=== PATIENT | male | born 1970 | race African-American/Black ===

== ENCOUNTER 2021-04-24 02:51 | Inpatient (IN) | payer OTHER, MEDICAID ==
[~2021-04-24] VITALS: Ht 182.9 cm; Wt 95.7 kg
[~2021-04-24 02:51] MED LIST: HCTZ; LISINOPRIL; [UNRECOGNIZED DRUG - OTHER]
[2021-04-24] MEDS ORDERED: MORPHINE SULFATE 4 MG/ML CPJ (NOT FOR IM USE) IV STA (03:22)
[2021-04-24] MEDS ORDERED: FAMOTIDINE 20MG/2ML VIAL IV STA (03:22)
[2021-04-24] MEDS ORDERED: METOCLOPRAMIDE HCL 10MG/2ML VIAL IV STA (03:22)
[2021-04-24] MEDS ORDERED: SODIUM CHLORIDE 0.9% 1,000 ML IV ONE ×2 (03:30)
[2021-04-24] MEDS ORDERED: METRONIDAZOLE 500 MG PREMIX 100 ML IV ONE (03:30)
[2021-04-24] MEDS ORDERED: PIPERACILLIN/TAZ 3.375G PREMIX 50 ML IV ONE (03:30)
[2021-04-24 04:07] LABS: BASOPHILS % 0.8 % (0.0-2.0); HEMATOCRIT. 30.9 % (42.0-52.0); HEMOGLOBIN. 10.2 g/dL (14.0-18.0); LYMPHOCYTES % 11.2 % (20.0-50.0); MEAN CORPUSCULAR HEMOGLOBIN 29.9 pg (28.0-32.0); MEAN CORPUSCULAR VOLUME 90.4 fL (80.0-94.0); MEAN PLATELET VOLUME 9.1 fl (7.4-10.4); MONOCYTES % 10.4 % (2.0-8.0); NEUTROPHILS % 75.6 % (40.0-76.0); PLATELET 320 x1000/uL (130-400); RED BLOOD CELL COUNT 3.42 mill/uL (4.7-6.1); RED CELL DISTRIBUTION WIDTH 17.3 % (11.6-14.6)
[2021-04-24] MEDS ORDERED: MORPHINE SULFATE 2 MG/ML CPJ (NOT FOR IM USE) IV NR (04:15)
[2021-04-24 04:20] LABS: CHLORIDE 99 mEq/L (98-107)
[2021-04-24] MEDS ORDERED: DIATR MEGLU/DIATRIZOATE SOLN 30ML ONE (04:41)
[2021-04-24] MEDS ORDERED: IOHEXOL-300 100 ML BOTTLE ONE (05:57)
[2021-04-24] MEDS ORDERED: MORPHINE SULFATE 4 MG/ML CPJ (NOT FOR IM USE) IV ONE (06:30)
[2021-04-24] MEDS ORDERED: MORPHINE SULFATE 2 MG/ML CPJ (NOT FOR IM USE) IV SCH (08:00)
[2021-04-24] MEDS ORDERED: PIPERACILLIN/TAZ 3.375G PREMIX 50 ML IV NR (09:30)
[2021-04-24] MEDS ORDERED: NOREPINEPHRINE 8MG/250ML PMX 250 ML IV PRN (09:30)
[2021-04-24] MEDS ORDERED: VANCOMYCIN 1 G PREMIX 200 ML IV SCH (10:00)
[2021-04-24 10:16] LABS: BASOPHILS % 0.6 % (0.0-2.0); EOSINOPHILS % 2.1 % (0.0-5.0); HEMATOCRIT. 27.8 % (42.0-52.0); HEMOGLOBIN. 9.3 g/dL (14.0-18.0); LYMPHOCYTES % 11.6 % (20.0-50.0); MEAN CORPUSCULAR HEMOGLOBIN 30.7 pg (28.0-32.0); MEAN CORPUSCULAR VOLUME 91.5 fL (80.0-94.0); MEAN PLATELET VOLUME 8.6 fl (7.4-10.4); MONOCYTES % 8.8 % (2.0-8.0); NEUTROPHILS % 76.9 % (40.0-76.0); PLATELET 289 x1000/uL (130-400); RED BLOOD CELL COUNT 3.04 mill/uL (4.7-6.1); RED CELL DISTRIBUTION WIDTH 17.4 % (11.6-14.6)
[2021-04-24 10:26] LABS: CHLORIDE 100 mEq/L (98-107)
[2021-04-24] MEDS ORDERED: NOREPINEPHRINE 8 MG in DEXTROSE 5% WATER 250 ML IV PRN ×2 (11:30→14:45)
[2021-04-24] MEDS ORDERED: LORAZEPAM 2MG/ML CPJ IV PRN (11:45)
[2021-04-24] MEDS ORDERED: TPN PER PHARMACY XX SCH (11:45)
[2021-04-24] MEDS ORDERED: IPRATROPIUM/ALBUTEROL 0.5-3(2.5)MG/3ML NEB NEB PRN (11:45)
[2021-04-24] MEDS ORDERED: NA PHOS,M-B/NA PHOS,DI-BA ENEMA 118ML PR PRN (11:45)
[2021-04-24] MEDS: FAMOTIDINE 20MG/2ML VIAL IV SCH (12:19)
[2021-04-24] MEDS: MORPHINE SULFATE 2 MG/ML CPJ (NOT FOR IM USE) IV PRN ×3 (12:20→23:50)
[2021-04-24 12:27] LABS: CLARITY URINE CLEAR (CLEAR); COLOR URINE YELLOW (YELLOW); KETONES URINE NEGATIVE (NEGATIVE); LEUKOCYTE ESTERASE URINE NEGATIVE (NEGATIVE); NITRITE URINE NEGATIVE (NEGATIVE); OCCULT BLOOD URINE 1+ (NEGATIVE); PH URINE 7.5 (4.5-8.0); PROTEIN URINE 2+ (NEGATIVE); SPECIFIC GRAVITY URINE 1.026 (1.005-1.030); UROBILINOGEN URINE 0.2 E.U./dL (0.2-1.0)
[2021-04-24] MEDS ORDERED: VANCOMYCIN 2,000 MG in DEXT 5% WATER 500 ML IV NR (13:00)
[2021-04-24] MEDS ORDERED: VANCOMYCIN 1 G PREMIX 200 ML IV NR (13:00)
[2021-04-24] MEDS ORDERED: LEVETIRACETAM 500 MG in SODIUM CHLORIDE 0.9% 100 ML IV SCH (13:15)
[2021-04-24] MEDS ORDERED: NALOXONE HCL 0.4MG/ML VIAL IV PRN (13:45)
[2021-04-24] MEDS ORDERED: LEVETIRACETAM 500MG PREMIX 100 ML IV SCH (14:00)
[2021-04-24 15:21] LABS: HEMATOCRIT 27.9 % (42.0-52.0); HEMOGLOBIN 9.5 g/dL (14.0-18.0)
[2021-04-24 15:30] LABS: INR 1.1
[2021-04-24 15:36] LABS: CREATINE KINASE 25 IU/L (39-308)
[2021-04-24 15:37] LABS: CREATINE KINASE MB FRACTION 1.2 ng/mL (0.5-3.6)
[2021-04-24] MEDS: PIPERACILLIN/TAZOBACTAM 3.375G in DEXT 5% WATER 50ML IV SCH (15:44)
[2021-04-24] MEDS: LEVETIRACETAM 500MG PREMIX 100 ML IV SCH ×2 (15:44→21:00)
[2021-04-24 17:00] VITALS: BP 132/68
[2021-04-24 18:00] VITALS: BP 117/73
[2021-04-24 20:00] VITALS: BP 104/67
[2021-04-24 22:00] VITALS: BP 125/72
[2021-04-24] MEDS ORDERED: PIPERACILLIN/TAZOBACTAM 3.375G in DEXT 5% WATER 50ML IV SCH (22:00)
[2021-04-24] MEDS: BLOOD SUGAR DIAGNOSTIC STRIP TEST SCH (23:44)
[2021-04-25] VITALS (13 sets, daily range): BP systolic 96–141; BP diastolic 50–88
[2021-04-25 00:35] LABS: CREATINE KINASE 30 IU/L (39-308)
[2021-04-25 00:36] LABS: CREATINE KINASE MB FRACTION 1.8 ng/mL (0.5-3.6)
[2021-04-25] MEDS: PIPERACILLIN/TAZOBACTAM 3.375G in DEXT 5% WATER 50ML IV SCH ×4 (01:10→22:42)
[2021-04-25] MEDS: TOTAL PARENTERAL NUTRITION IV SCH ×2 (01:13→21:21)
[2021-04-25] MEDS: MORPHINE SULFATE 2 MG/ML CPJ (NOT FOR IM USE) IV PRN ×4 (04:31→17:52)
[2021-04-25] MEDS: BLOOD SUGAR DIAGNOSTIC STRIP TEST SCH ×3 (06:00→18:03)
[2021-04-25] MEDS ORDERED: VANCOMYCIN 1500MG in DEXTROSE 5% WATER 250ML IV SCH (08:00)
[2021-04-25] MEDS ORDERED: LIDOCAINE HCL 1% 20ML VIAL (Pyxis) INJ ONE (08:06)
[2021-04-25 09:32] LABS: BASOPHILS % 0.8 % (0.0-2.0); EOSINOPHILS % 4.9 % (0.0-5.0); HEMATOCRIT. 29.7 % (42.0-52.0); HEMOGLOBIN. 9.7 g/dL (14.0-18.0); LYMPHOCYTES % 13.4 % (20.0-50.0); MEAN CORPUSCULAR HEMOGLOBIN 30.1 pg (28.0-32.0); MEAN CORPUSCULAR VOLUME 91.9 fL (80.0-94.0); MEAN PLATELET VOLUME 9.4 fl (7.4-10.4); MONOCYTES % 10.3 % (2.0-8.0); NEUTROPHILS % 70.6 % (40.0-76.0); PLATELET 283 x1000/uL (130-400); RED BLOOD CELL COUNT 3.24 mill/uL (4.7-6.1); RED CELL DISTRIBUTION WIDTH 17.5 % (11.6-14.6)
[2021-04-25 09:41] LABS: CHLORIDE 102 mEq/L (98-107)
[2021-04-25 09:49] LABS: LDL CHOLESTEROL 91 mg/dL (5-100)
[2021-04-25 09:50] LABS: HDL CHOLESTEROL 32 mg/dL (40-59); TOTAL IRON BINDING CAPACITY 137 ug/dL (250-450)
[2021-04-25 09:54] LABS: T4 FREE 1.09 ng/dL (0.76-1.46)
[2021-04-25] MEDS: FAMOTIDINE 20MG/2ML VIAL IV SCH (10:16)
[2021-04-25] MEDS: LEVETIRACETAM 500MG PREMIX 100 ML IV SCH ×2 (10:16→21:19)
[2021-04-25] MEDS: VANCOMYCIN 1500MG in DEXTROSE 5% WATER 250ML IV SCH (11:56)
[2021-04-26] VITALS (15 sets, daily range): BP systolic 92–138; BP diastolic 56–92
[2021-04-26] MEDS: DIPHENHYDRAMINE 50MG/ML VIAL IV PRN (00:50)
[2021-04-26] MEDS: MORPHINE SULFATE 2 MG/ML CPJ (NOT FOR IM USE) IV PRN ×3 (00:51→18:27)
[2021-04-26] MEDS: BLOOD SUGAR DIAGNOSTIC STRIP TEST SCH ×4 (06:00→17:25)
[2021-04-26] MEDS: PIPERACILLIN/TAZOBACTAM 3.375G in DEXT 5% WATER 50ML IV SCH ×3 (06:34→23:02)
[2021-04-26 08:05] LABS: BASOPHILS % 0.8 % (0.0-2.0); EOSINOPHILS % 6.3 % (0.0-5.0); HEMATOCRIT. 30.2 % (42.0-52.0); HEMOGLOBIN. 10.2 g/dL (14.0-18.0); LYMPHOCYTES % 20.2 % (20.0-50.0); MEAN CORPUSCULAR HEMOGLOBIN 30.8 pg (28.0-32.0); MEAN CORPUSCULAR VOLUME 91.1 fL (80.0-94.0); MONOCYTES % 11.9 % (2.0-8.0); NEUTROPHILS % 60.8 % (40.0-76.0); PLATELET 251 x1000/uL (130-400); RED BLOOD CELL COUNT 3.31 mill/uL (4.7-6.1); RED CELL DISTRIBUTION WIDTH 17.2 % (11.6-14.6)
[2021-04-26] MEDS: LEVETIRACETAM 500MG PREMIX 100 ML IV SCH ×2 (08:57→20:34)
[2021-04-26] MEDS: FAMOTIDINE 20MG/2ML VIAL IV SCH (08:57)
[2021-04-26] MEDS ORDERED: BISACODYL 10MG SUPP PR SCH (09:45)
[2021-04-26] MEDS: VANCOMYCIN 1500MG in DEXTROSE 5% WATER 250ML IV SCH (10:41)
[2021-04-26 10:55] LABS: BG FRACTION INSPIRED OXYGEN 21; BG SAMPLE SITE LEFT RADIAL; BG VENT MODE ROOM AIR
[2021-04-26 11:05] LABS: BG PCO2 45.8 mmHg (35.0-45.0); BG PH 7.476 (7.350-7.450)
[2021-04-26 11:06] LABS: BG PO2 77.9 mmHg (75.0-100.0)
[2021-04-26 11:07] LABS: BG BASE EXCESS 8.5 mmol/L (-2.0-2.0)
[2021-04-26 11:08] LABS: BG OXYGEN SATURATION 95.4 % (92.0-98.5); BG TOTAL HEMOGLOBIN 10.2 g/dL (12.0-18.0)
[2021-04-26 11:09] LABS: BG CARBOXYHEMOGLOBIN 0.1 % (0.5-1.5); BG OXYHEMOGLOBIN 95.1 % (94.0-97.0)
[2021-04-26 11:10] LABS: BG DEOXYHEMOGLOBIN 4.6 % (0.0-5.0); BG METHEMOGLOBIN 0.2 % (0.0-1.5)
[2021-04-26] MEDS ORDERED: FENTANYL 25MCG/HR PATCH TOP SCH (12:00)
[2021-04-26] MEDS: TOTAL PARENTERAL NUTRITION IV SCH (20:40)
[2021-04-27] VITALS (14 sets, daily range): BP systolic 107–145; BP diastolic 36–91
[2021-04-27] MEDS: MORPHINE SULFATE 2 MG/ML CPJ (NOT FOR IM USE) IV PRN ×5 (00:16→21:54)
[2021-04-27] MEDS: PIPERACILLIN/TAZOBACTAM 3.375G in DEXT 5% WATER 50ML IV SCH ×3 (06:19→22:14)
[2021-04-27] MEDS: LEVETIRACETAM 500MG PREMIX 100 ML IV SCH ×2 (09:01→21:42)
[2021-04-27] MEDS: FAMOTIDINE 20MG/2ML VIAL IV SCH (09:01)
[2021-04-27] MEDS: BLOOD SUGAR DIAGNOSTIC STRIP TEST SCH (09:02)
[2021-04-27] MEDS ORDERED: BISACODYL 10MG SUPP PR NR (12:15)
[2021-04-27] MEDS: VANCOMYCIN 1500MG in DEXTROSE 5% WATER 250ML IV SCH (12:21)
[2021-04-27] MEDS: DIPHENHYDRAMINE 50MG/ML VIAL IV PRN (12:28)
[2021-04-27] MEDS: TOTAL PARENTERAL NUTRITION IV SCH (22:15)
[2021-04-28] VITALS: BP 119/66
[2021-04-28 04:00] VITALS: BP 132/81
[2021-04-28] MEDS: PIPERACILLIN/TAZOBACTAM 3.375G in DEXT 5% WATER 50ML IV SCH ×3 (05:21→21:51)
[2021-04-28] MEDS: MORPHINE SULFATE 2 MG/ML CPJ (NOT FOR IM USE) IV PRN ×4 (05:28→18:40)
[2021-04-28 08:00] VITALS: BP 143/96
[2021-04-28] MEDS: FAMOTIDINE 20MG/2ML VIAL IV SCH (08:34)
[2021-04-28] MEDS: LEVETIRACETAM 500MG PREMIX 100 ML IV SCH ×2 (08:34→20:26)
[2021-04-28 09:14] LABS: BASOPHILS % 0.9 % (0.0-2.0); EOSINOPHILS % 5.6 % (0.0-5.0); HEMATOCRIT. 29.3 % (42.0-52.0); LYMPHOCYTES % 13.4 % (20.0-50.0); MEAN CORPUSCULAR VOLUME 90.5 fL (80.0-94.0); MEAN PLATELET VOLUME 8.7 fl (7.4-10.4); MONOCYTES % 10.7 % (2.0-8.0); NEUTROPHILS % 69.4 % (40.0-76.0); PLATELET 319 x1000/uL (130-400); RED BLOOD CELL COUNT 3.24 mill/uL (4.7-6.1)
[2021-04-28] MEDS: BLOOD SUGAR DIAGNOSTIC STRIP TEST SCH (09:49)
[2021-04-28] MEDS: VANCOMYCIN 1500MG in DEXTROSE 5% WATER 250ML IV SCH (11:48)
[2021-04-28 12:00] VITALS: BP 178/91
[2021-04-28 16:00] VITALS: BP 126/84
[2021-04-28] MEDS: TOTAL PARENTERAL NUTRITION IV SCH (21:54)
[2021-04-29] VITALS: BP 140/65
[2021-04-29] MEDS: MORPHINE SULFATE 2 MG/ML CPJ (NOT FOR IM USE) IV PRN ×3 (00:50→09:51)
[2021-04-29 04:00] VITALS: BP 135/63
[2021-04-29] MEDS: PIPERACILLIN/TAZOBACTAM 3.375G in DEXT 5% WATER 50ML IV SCH (05:00)
[2021-04-29 08:00] VITALS: BP 165/98
[2021-04-29] MEDS: BLOOD SUGAR DIAGNOSTIC STRIP TEST SCH (09:00)
[2021-04-29] MEDS: LEVETIRACETAM 500MG PREMIX 100 ML IV SCH ×2 (10:00→20:50)
[2021-04-29] MEDS: FAMOTIDINE 20MG/2ML VIAL IV SCH (10:00)
[2021-04-29 12:00] VITALS: BP 147/97
[2021-04-29] MEDS: FENTANYL 50MCG/HR PATCH TOP SCH (13:10)
[2021-04-29 16:00] VITALS: BP 156/92
[2021-04-29] MEDS ORDERED: MORPHINE SULFATE 2 MG/ML CPJ (NOT FOR IM USE) IV NR (17:27)
[2021-04-29] MEDS ORDERED: VANCOMYCIN 1 G PREMIX 200 ML IV NR (18:00)
[2021-04-29 20:00] VITALS: BP 150/94
[2021-04-29] MEDS: TOTAL PARENTERAL NUTRITION IV SCH (22:07)
[2021-04-30] VITALS: BP 137/84
[2021-04-30] MEDS: MORPHINE SULFATE 2 MG/ML CPJ (NOT FOR IM USE) IV PRN ×7 (00:04→20:52)
[2021-04-30 06:44] LABS: BASOPHILS % 0.6 % (0.0-2.0); EOSINOPHILS % 1.7 % (0.0-5.0); HEMATOCRIT. 31.5 % (42.0-52.0); HEMOGLOBIN. 10.8 g/dL (14.0-18.0); LYMPHOCYTES % 10.4 % (20.0-50.0); MEAN CORPUSCULAR VOLUME 90.9 fL (80.0-94.0); MEAN PLATELET VOLUME 8.6 fl (7.4-10.4); MONOCYTES % 10.3 % (2.0-8.0); PLATELET 339 x1000/uL (130-400); RED BLOOD CELL COUNT 3.47 mill/uL (4.7-6.1); RED CELL DISTRIBUTION WIDTH 16.6 % (11.6-14.6)
[2021-04-30 08:00] VITALS: BP 145/99
[2021-04-30] MEDS: LEVETIRACETAM 500MG PREMIX 100 ML IV SCH ×2 (08:41→20:18)
[2021-04-30] MEDS: BLOOD SUGAR DIAGNOSTIC STRIP TEST SCH (08:41)
[2021-04-30] MEDS: FAMOTIDINE 20MG/2ML VIAL IV SCH (08:41)
[2021-04-30] MEDS: ONDANSETRON HCL 4MG/2ML INJ IV PRN (09:48)
[2021-04-30] MEDS ORDERED: METOPROLOL TARTRATE 5MG/5ML VIAL IV ONE (11:15)
[2021-04-30 12:00] VITALS: BP 140/97
[2021-04-30] MEDS: LEVOFLOXACIN 500MG PREMIX 100 ML IV SCH (12:37)
[2021-04-30] MEDS ORDERED: METOPROLOL TARTRATE IV SCH (13:00)
[2021-04-30] MEDS ORDERED: SODIUM CHLORIDE 0.9% IV SCH (13:00)
[2021-04-30 16:00] VITALS: BP 138/95
[2021-04-30] MEDS: METRONIDAZOLE 500 MG PREMIX 100 ML IV SCH ×2 (16:02→21:40)
[2021-04-30 20:00] VITALS: BP 119/81
[2021-04-30] MEDS: TOTAL PARENTERAL NUTRITION IV SCH (21:50)
[2021-05-01] VITALS: BP 156/96
[2021-05-01] MEDS: MORPHINE SULFATE 2 MG/ML CPJ (NOT FOR IM USE) IV PRN ×6 (00:04→21:18)
[2021-05-01 04:00] VITALS: BP 149/96
[2021-05-01] MEDS: METRONIDAZOLE 500 MG PREMIX 100 ML IV SCH ×3 (06:09→21:47)
[2021-05-01 08:00] VITALS: BP 124/82
[2021-05-01] MEDS: BLOOD SUGAR DIAGNOSTIC STRIP TEST SCH (09:00)
[2021-05-01] MEDS: FAMOTIDINE 20MG/2ML VIAL IV SCH ×2 (10:28→21:20)
[2021-05-01] MEDS: LEVETIRACETAM 500MG PREMIX 100 ML IV SCH ×2 (10:28→21:13)
[2021-05-01] MEDS: LEVOFLOXACIN 500MG PREMIX 100 ML IV SCH (11:22)
[2021-05-01 12:00] VITALS: BP 130/73
[2021-05-01] MEDS ORDERED: METOPROLOL TARTRATE 5MG/5ML VIAL IV ONE (13:15)
[2021-05-01] MEDS ORDERED: SODIUM CHLORIDE 0.9% IV SCH (13:30)
[2021-05-01] MEDS ORDERED: METOPROLOL TARTRATE IV SCH (13:30)
[2021-05-01 16:00] VITALS: BP 102/67
[2021-05-01] MEDS ORDERED: NALOXONE HCL 0.4MG/ML VIAL IV PRN (18:00)
[2021-05-01 20:00] VITALS: BP 118/68
[2021-05-01] MEDS: TOTAL PARENTERAL NUTRITION IV SCH (21:14)
[2021-05-02] VITALS: BP 98/59
[2021-05-02 04:00] VITALS: BP 109/68
[2021-05-02] MEDS: DIPHENHYDRAMINE 50MG/ML VIAL IV PRN (04:07)
[2021-05-02] MEDS: METRONIDAZOLE 500 MG PREMIX 100 ML IV SCH ×3 (06:19→21:30)
[2021-05-02] MEDS: MORPHINE SULFATE 2 MG/ML CPJ (NOT FOR IM USE) IV PRN ×3 (06:20→23:21)
[2021-05-02] MEDS: BLOOD SUGAR DIAGNOSTIC STRIP TEST SCH (09:00)
[2021-05-02] MEDS: FAMOTIDINE 20MG/2ML VIAL IV SCH ×2 (10:10→21:29)
[2021-05-02] MEDS: LEVETIRACETAM 500MG PREMIX 100 ML IV SCH ×2 (10:10→21:30)
[2021-05-02 12:00] VITALS: BP 125/65
[2021-05-02] MEDS: LEVOFLOXACIN 500MG PREMIX 100 ML IV SCH (12:29)
[2021-05-02 12:31] LABS: BASOPHILS % 0.9 % (0.0-2.0); EOSINOPHILS % 7.4 % (0.0-5.0); HEMATOCRIT. 24.4 % (42.0-52.0); HEMOGLOBIN. 8.3 g/dL (14.0-18.0); LYMPHOCYTES % 16.5 % (20.0-50.0); MEAN CORPUSCULAR HEMOGLOBIN 30.9 pg (28.0-32.0); MEAN CORPUSCULAR VOLUME 90.4 fL (80.0-94.0); MEAN PLATELET VOLUME 8.1 fl (7.4-10.4); MONOCYTES % 14.3 % (2.0-8.0); NEUTROPHILS % 60.9 % (40.0-76.0); PLATELET 316 x1000/uL (130-400); RED BLOOD CELL COUNT 2.69 mill/uL (4.7-6.1); RED CELL DISTRIBUTION WIDTH 16.4 % (11.6-14.6)
[2021-05-02] MEDS: FENTANYL 50MCG/HR PATCH TOP SCH (14:02)
[2021-05-02 16:00] VITALS: BP 105/60
[2021-05-02 20:00] VITALS: BP 104/66
[2021-05-02] MEDS: FAT EMULSIONS 500 ML IV SCH (21:31)
[2021-05-02] MEDS: TOTAL PARENTERAL NUTRITION IV SCH (21:32)
[2021-05-03] MEDS: MORPHINE SULFATE 2 MG/ML CPJ (NOT FOR IM USE) IV PRN ×4 (04:56→16:29)
[2021-05-03] MEDS: METRONIDAZOLE 500 MG PREMIX 100 ML IV SCH ×3 (05:10→22:29)
[2021-05-03 08:00] VITALS: BP 124/78
[2021-05-03] MEDS: FAMOTIDINE 20MG/2ML VIAL IV SCH ×2 (09:19→22:27)
[2021-05-03] MEDS: LEVETIRACETAM 500MG PREMIX 100 ML IV SCH ×2 (09:19→22:27)
[2021-05-03] MEDS: BLOOD SUGAR DIAGNOSTIC STRIP TEST SCH (09:29)
[2021-05-03 12:00] VITALS: BP 123/74
[2021-05-03] MEDS: LEVOFLOXACIN 500MG PREMIX 100 ML IV SCH (12:11)
[2021-05-03 20:00] VITALS: BP 138/84
[2021-05-03] MEDS: TOTAL PARENTERAL NUTRITION IV SCH (22:41)
[2021-05-04] VITALS: BP 128/88
[2021-05-04 01:09] LABS: BASOPHILS % 0.5 % (0.0-2.0); EOSINOPHILS % 6.6 % (0.0-5.0); HEMATOCRIT. 26.1 % (42.0-52.0); HEMOGLOBIN. 8.7 g/dL (14.0-18.0); LYMPHOCYTES % 15.2 % (20.0-50.0); MEAN CORPUSCULAR HEMOGLOBIN 30.6 pg (28.0-32.0); MEAN CORPUSCULAR VOLUME 92.3 fL (80.0-94.0); MEAN PLATELET VOLUME 8.7 fl (7.4-10.4); MONOCYTES % 12.2 % (2.0-8.0); NEUTROPHILS % 65.5 % (40.0-76.0); PLATELET 347 x1000/uL (130-400); RED BLOOD CELL COUNT 2.83 mill/uL (4.7-6.1); RED CELL DISTRIBUTION WIDTH 16.5 % (11.6-14.6)
[2021-05-04] MEDS: MORPHINE SULFATE 2 MG/ML CPJ (NOT FOR IM USE) IV PRN ×4 (02:20→20:37)
[2021-05-04] MEDS: METRONIDAZOLE 500 MG PREMIX 100 ML IV SCH ×3 (06:11→22:15)
[2021-05-04 07:20] LABS: BASOPHILS % 0.6 % (0.0-2.0); EOSINOPHILS % 6.7 % (0.0-5.0); HEMATOCRIT. 25.3 % (42.0-52.0); HEMOGLOBIN. 8.6 g/dL (14.0-18.0); LYMPHOCYTES % 15.5 % (20.0-50.0); MEAN CORPUSCULAR HEMOGLOBIN 30.9 pg (28.0-32.0); MEAN CORPUSCULAR VOLUME 91.3 fL (80.0-94.0); MEAN PLATELET VOLUME 8.4 fl (7.4-10.4); MONOCYTES % 10.8 % (2.0-8.0); NEUTROPHILS % 66.4 % (40.0-76.0); PLATELET 335 x1000/uL (130-400); RED BLOOD CELL COUNT 2.77 mill/uL (4.7-6.1); RED CELL DISTRIBUTION WIDTH 16.4 % (11.6-14.6)
[2021-05-04 08:00] VITALS: BP 142/91
[2021-05-04] MEDS: BLOOD SUGAR DIAGNOSTIC STRIP TEST SCH (09:00)
[2021-05-04] MEDS: FAMOTIDINE 20MG/2ML VIAL IV SCH ×2 (10:22→22:16)
[2021-05-04] MEDS: LEVETIRACETAM 500MG PREMIX 100 ML IV SCH ×2 (10:22→20:37)
[2021-05-04] MEDS: LEVOFLOXACIN 500MG PREMIX 100 ML IV SCH (11:57)
[2021-05-04 12:00] VITALS: BP 136/83
[2021-05-04 16:00] VITALS: BP 113/76
[2021-05-04 20:00] VITALS: BP 130/91
[2021-05-04] MEDS: TOTAL PARENTERAL NUTRITION IV SCH (22:15)
[2021-05-05] MEDS: MORPHINE SULFATE 2 MG/ML CPJ (NOT FOR IM USE) IV PRN ×4 (03:05→18:25)
[2021-05-05 04:00] VITALS: BP 129/65
[2021-05-05] MEDS: METRONIDAZOLE 500 MG PREMIX 100 ML IV SCH ×3 (05:36→22:55)
[2021-05-05] MEDS: BLOOD SUGAR DIAGNOSTIC STRIP TEST SCH (09:00)
[2021-05-05] MEDS: FAMOTIDINE 20MG/2ML VIAL IV SCH ×2 (09:49→21:15)
[2021-05-05] MEDS: LEVETIRACETAM 500MG PREMIX 100 ML IV SCH ×2 (09:49→21:15)
[2021-05-05] MEDS ORDERED: FENTANYL 50MCG/HR PATCH TOP SCH (11:00)
[2021-05-05] MEDS: LEVOFLOXACIN 500MG PREMIX 100 ML IV SCH (11:43)
[2021-05-05 12:00] VITALS: BP 128/82
[2021-05-05 16:00] VITALS: BP 126/81
[2021-05-05 20:00] VITALS: BP 115/79
[2021-05-05] MEDS: TOTAL PARENTERAL NUTRITION IV SCH (21:15)
[2021-05-06] MEDS: MORPHINE SULFATE 2 MG/ML CPJ (NOT FOR IM USE) IV PRN ×4 (01:40→20:17)
[2021-05-06 04:00] VITALS: BP 137/88
[2021-05-06 08:00] VITALS: BP 112/78
[2021-05-06] MEDS: BLOOD SUGAR DIAGNOSTIC STRIP TEST SCH (09:00)
[2021-05-06] MEDS: FAMOTIDINE 20MG/2ML VIAL IV SCH ×2 (09:22→20:22)
[2021-05-06] MEDS: LEVETIRACETAM 500MG PREMIX 100 ML IV SCH ×2 (09:23→20:19)
[2021-05-06 10:28] LABS: CHLORIDE 109 mEq/L (98-107)
[2021-05-06] MEDS: ONDANSETRON HCL 4MG/2ML INJ IV PRN (11:15)
[2021-05-06 12:00] VITALS: BP 103/64
[2021-05-06 20:00] VITALS: BP 100/69
[2021-05-06] MEDS ORDERED: TOTAL PARENTERAL NUTRITION IV SCH (21:00)
[2021-05-06] MEDS: FAT EMULSIONS 500 ML IV SCH (22:48)
[2021-05-07] VITALS: BP_SYST 105; BP_SYST 168; BP_DIAS 65; BP_DIAS 90
[2021-05-07] MEDS: MORPHINE SULFATE 2 MG/ML CPJ (NOT FOR IM USE) IV PRN ×4 (02:21→19:45)
[2021-05-07 08:00] VITALS: BP 124/81
[2021-05-07] MEDS: FAMOTIDINE 20MG/2ML VIAL IV SCH (08:30)
[2021-05-07] MEDS: LEVETIRACETAM 500MG PREMIX 100 ML IV SCH (08:39)
[2021-05-07] MEDS: BLOOD SUGAR DIAGNOSTIC STRIP TEST SCH (09:14)
[2021-05-07 12:00] VITALS: BP 111/66
[2021-05-07 16:00] VITALS: BP 111/71
[2021-05-07 19:01] VITALS: BP 111/71
== END 2021-05-07 20:10 | DRG 314 ==
LOC: ER 03:48 → MICUSO 07:20 → 7EST 11:02 → MICUSO 11:12 → 5EST 13:37 → MICUSO 14:14 → 3WST 15:06 → 6EST 04-27 14:50
PROVIDERS: ADMIT Internal Medicine; ATTEND Internal Medicine
PROC: 02PYX3Z Removal of Infusion Device from Great Vessel, External Approach (ICD-10-PCS; principal; 2021-04-25)
PROC: 05HY33Z Insertion of Infusion Device into Upper Vein, Percutaneous Approach (ICD-10-PCS; 2021-04-25)
DX: T80.211A Bloodstream infection due to central venous catheter, initial encounter (principal); A41.9 Sepsis, unspecified organism; G93.41 Metabolic encephalopathy; E43 Unspecified severe protein-calorie malnutrition; K31.6 Fistula of stomach and duodenum; D64.9 Anemia, unspecified; E86.0 Dehydration; G40.909 Epilepsy, unspecified, not intractable, without status epilepticus; Z20.822 Contact with and (suspected) exposure to COVID-19; I12.9 Hypertensive chronic kidney disease with stage 1 through stage 4 chronic kidney disease, or unspecified chronic kidney disease; K59.00 Constipation, unspecified; N18.9 Chronic kidney disease, unspecified; R74.01 Elevation of levels of liver transaminase levels; Y84.8 Other medical procedures as the cause of abnormal reaction of the patient, or of later complication, without mention of misadventure at the time of the procedure; Z86.73 Personal history of transient ischemic attack (TIA), and cerebral infarction without residual deficits; Y92.89 Other specified places as the place of occurrence of the external cause; Z68.28 Body mass index [BMI] 28.0-28.9, adult
CPT/HCPCS: 36415; 36600; 71045; 74177; 76937; 80048; 80053; 80061; 80202; 81003; 82375; 82550; 82553; 82805; 82962; 83540; 83550; 83605; 83735; 84100; 84145; 84439; 84443; 84484; 85014; 85018; 85025; 85044; 86850; 86900; 87426; 93005; 93306; 93970; 97166; 99285; C1725; C1769; J1200; J1953; J1956; J2270; J2405; J2543; J2765; J3370; J3490; J7030; J7040; J7060; Q9963; Q9967

== ENCOUNTER 2021-11-09 11:46 | Emergency (ER) | payer OTHER, MEDICAID ==
[~2021-11-09] VITALS: Ht 182.9 cm; Wt 82.0 kg
[2021-11-09] MEDS ORDERED: SODIUM CHLORIDE 0.9% 1000ML BAG (SEPSIS BOLUS) IV ONE (12:30)
[2021-11-09] MEDS ORDERED: PIPERACILLIN/TAZ 3.375G PREMIX 50 ML IV ONE (12:30)
[2021-11-09] MEDS ORDERED: MORPHINE SULFATE 4 MG/ML CPJ (NOT FOR IM USE) IV ONE (12:30)
[2021-11-09] MEDS ORDERED: VANCOMYCIN 1G PREMIX 200 ML IV ONE (12:30)
[2021-11-09 13:06] LABS: BASOPHILS % 0.5 % (0.0-2.0); EOSINOPHILS % 4.8 % (0.0-5.0); HEMATOCRIT. 30.8 % (42.0-52.0); HEMOGLOBIN. 10.1 g/dL (14.0-18.0); LYMPHOCYTES % 13.6 % (20.0-50.0); MEAN CORPUSCULAR HEMOGLOBIN 30.9 pg (28.0-32.0); MEAN CORPUSCULAR VOLUME 93.9 fL (80.0-94.0); MEAN PLATELET VOLUME 9.7 fl (7.4-10.4); MONOCYTES % 6.3 % (2.0-8.0); NEUTROPHILS % 74.8 % (40.0-76.0); PLATELET 231 x1000/uL (130-400); RED BLOOD CELL COUNT 3.28 mill/uL (4.7-6.1); RED CELL DISTRIBUTION WIDTH 16.4 % (11.6-14.6)
[2021-11-09 13:15] LABS: CHLORIDE 105 mEq/L (98-107)
[2021-11-09] MEDS ORDERED: VANCOMYCIN 1GM PMX (XELLIA) 200 ML IV ONE (13:30)
[2021-11-09] MEDS ORDERED: POTASSIUM CHLORIDE INJ 30 MEQ in DEXT 5%/0.9% NACL 1,000 ML IV ONE (13:30)
[2021-11-09] MEDS ORDERED: HYDROMORPHONE HCL/PF 2MG/ML CPJ IV NR (19:15)
[2021-11-09 20:46] LABS: CLARITY URINE CLOUDY (CLEAR); COLOR URINE YELLOW (YELLOW); KETONES URINE NEGATIVE (NEGATIVE); LEUKOCYTE ESTERASE URINE TRACE (NEGATIVE); NITRITE URINE NEGATIVE (NEGATIVE); OCCULT BLOOD URINE NEGATIVE (NEGATIVE); PH URINE >=9.0 (4.5-8.0); PROTEIN URINE 1+ (NEGATIVE); SPECIFIC GRAVITY URINE 1.011 (1.005-1.030); UROBILINOGEN URINE 0.2 E.U./dL (0.2-1.0)
[2021-11-09 22:00] VITALS: BP 107/61
[2021-11-10] MEDS ORDERED: LEVETIRACETAM 1000MG PREMIX 100 ML IV SCH (09:00)
== END 2021-11-10 | disposition short-term general hospital (02) ==
LOC: ER 12:06 → CANBEDREQ 11-10 02:10
DX: R10.9 Unspecified abdominal pain (principal); G89.29 Other chronic pain; N39.0 Urinary tract infection, site not specified; E87.6 Hypokalemia; I10 Essential (primary) hypertension; Z86.73 Personal history of transient ischemic attack (TIA), and cerebral infarction without residual deficits; Z98.890 Other specified postprocedural states; Z20.822 Contact with and (suspected) exposure to COVID-19
CPT/HCPCS: 36415; 71045; 74176; 80053; 81003; 83605; 84145; 85025; 87040; 87086; 87426; 93005; 96365; 96368; 96375; 99291; J1170; J2270; J2543; J3370; J3480; J7030; J7042

== ENCOUNTER 2022-01-09 11:54 | Emergency (ER) | payer OTHER, MEDICAID ==
[~2022-01-09] VITALS: Ht 177.8 cm; Wt 90.0 kg
[2022-01-09] MEDS ORDERED: FENTANYL CITRATE/PF 50MCG/ML 2ML VIAL IV ONE (12:15)
[2022-01-09] MEDS ORDERED: FENTANYL CITRATE/PF 50MCG/ML 2ML VIAL IV PRN (12:30)
[2022-01-09] MEDS ORDERED: METHADONE HCL 5MG/5ML ORAL SOLN UDC PO PRN (12:30)
[2022-01-09 12:32] LABS: BASOPHILS % 0.7 % (0.0-2.0); EOSINOPHILS % 3.7 % (0.0-5.0); HEMATOCRIT. 29.1 % (42.0-52.0); HEMOGLOBIN. 9.9 g/dL (14.0-18.0); LYMPHOCYTES % 14.3 % (20.0-50.0); MEAN CORPUSCULAR HEMOGLOBIN 30.9 pg (28.0-32.0); MEAN CORPUSCULAR VOLUME 91.2 fL (80.0-94.0); MEAN PLATELET VOLUME 8.9 fl (7.4-10.4); MONOCYTES % 8.2 % (2.0-8.0); NEUTROPHILS % 73.1 % (40.0-76.0); PLATELET 258 x1000/uL (130-400); RED BLOOD CELL COUNT 3.19 mill/uL (4.7-6.1); RED CELL DISTRIBUTION WIDTH 16.4 % (11.6-14.6)
[2022-01-09 12:39] LABS: INR 1.1; PROTHROMBIN TIME 11.7 sec (9.6-11.0)
[2022-01-09 12:40] LABS: CHLORIDE 102 mEq/L (98-107)
[2022-01-09] MEDS ORDERED: HYDROMORPHONE HCL/PF 2MG/ML CPJ IV PRN (14:15)
[2022-01-09] MEDS ORDERED: CLONIDINE 0.1MG TABLET PO PRN (14:15)
[2022-01-09] MEDS ORDERED: ACETAMINOPHEN 650MG/20.3ML UDC GT PRN (14:15)
[2022-01-09] MEDS ORDERED: PANTOPRAZOLE SODIUM 40 MG/VIAL IV SCH (14:29)
[2022-01-09] MEDS ORDERED: AMLODIPINE 5MG TABLET PO SCH (14:30)
[2022-01-09] MEDS ORDERED: SODIUM CHLORIDE 0.9% 1,000 ML IV SCH (14:31)
[2022-01-09] MEDS ORDERED: ENOXAPARIN 40MG/0.4ML SYR SUBCUT SCH (15:00)
[2022-01-09 20:00] VITALS: BP 129/75
== END 2022-01-09 21:43 | disposition short-term general hospital (02) ==
LOC: ER 11:54
DX: R10.9 Unspecified abdominal pain (principal); K63.2 Fistula of intestine; R53.1 Weakness; F11.23 Opioid dependence with withdrawal; I10 Essential (primary) hypertension; R56.9 Unspecified convulsions; I69.354 Hemiplegia and hemiparesis following cerebral infarction affecting left non-dominant side; Z93.0 Tracheostomy status; Z74.01 Bed confinement status; Z87.891 Personal history of nicotine dependence
CPT/HCPCS: 36415; 80053; 83690; 85025; 85610; 96372; 96374; 96375; 99285; C9113; J1170; J1650; J3010; Z7610

== ENCOUNTER 2022-01-21 11:52 | Inpatient (IN) | payer OTHER, MEDICAID ==
[2022-01-21] VITALS (7 sets, daily range): BP systolic 85–144; BP diastolic 44–78
[~2022-01-21] VITALS: Ht 180.3 cm; Wt 97.5 kg
[~2022-01-21 11:52] MED LIST changes: +VANCOMYCIN 750 MG in DEXT 5% WATER 250 ML IV SCH
[2022-01-21] MEDS ORDERED: MORPHINE SULFATE 4 MG/ML CPJ (NOT FOR IM USE) IV STA (12:14)
[2022-01-21] MEDS ORDERED: ACETAMINOPHEN 325MG TABLET PO STA (12:14)
[2022-01-21] MEDS ORDERED: SODIUM CHLORIDE 0.9% 1,000 ML IV ONE ×2 (12:15→17:00)
[2022-01-21 13:30] LABS: HEMATOCRIT. 24.7 % (42.0-52.0); HEMOGLOBIN. 8.3 g/dL (14.0-18.0); MEAN CORPUSCULAR HEMOGLOBIN 31.3 pg (28.0-32.0); MEAN CORPUSCULAR VOLUME 92.7 fL (80.0-94.0); MEAN PLATELET VOLUME 8.5 fl (7.4-10.4); PLATELET 169 x1000/uL (130-400); RED BLOOD CELL COUNT 2.66 mill/uL (4.7-6.1); RED CELL DISTRIBUTION WIDTH 16.1 % (11.6-14.6)
[2022-01-21 13:38] LABS: INR 1.2; PROTHROMBIN TIME 12.3 sec (9.6-11.0)
[2022-01-21 13:43] LABS: CHLORIDE 107 mEq/L (98-107)
[2022-01-21 14:00] LABS: PLATELET ESTIMATE NORMAL
[2022-01-21] MEDS ORDERED: VANCOMYCIN 1G PREMIX 200 ML IV STA (14:20)
[2022-01-21] MEDS ORDERED: PIPERACILLIN/TAZOBACTAM 3.375GM/50ML PREMIX IV ONE (14:30)
[2022-01-21] MEDS ORDERED: PIPERACILLIN/TAZ 3.375G PREMIX 50 ML IV NR (14:30)
[2022-01-21] MEDS ORDERED: POTASSIUM CHLORIDE 20MEQ TABLET SR PO ONE (14:45)
[2022-01-21 15:30] LABS: CLARITY URINE CLEAR (CLEAR); COLOR URINE YELLOW (YELLOW); KETONES URINE NEGATIVE (NEGATIVE); LEUKOCYTE ESTERASE URINE NEGATIVE (NEGATIVE); NITRITE URINE POSITIVE (NEGATIVE); OCCULT BLOOD URINE NEGATIVE (NEGATIVE); PH URINE >=9.0 (4.5-8.0); PROTEIN URINE TRACE (NEGATIVE); SPECIFIC GRAVITY URINE 1.011 (1.005-1.030); UROBILINOGEN URINE 0.2 E.U./dL (0.2-1.0)
[2022-01-21] MEDS ORDERED: ONDANSETRON HCL 4MG/2ML INJ IV PRN (16:30)
[2022-01-21] MEDS ORDERED: PIPERACILLIN/TAZ 3.375G PREMIX 50 ML IV SCH ×2 (16:30→22:00)
[2022-01-21] MEDS ORDERED: DEXTROSE 50% WATER 50ML SYRINGE IV PRN (16:30)
[2022-01-21] MEDS: ENOXAPARIN 40MG/0.4ML SYR SUBCUT SCH (16:41)
[2022-01-21] MEDS ORDERED: POTASSIUM CHLORIDE 20MEQ TABLET SR PO NR (16:45)
[2022-01-21] MEDS ORDERED: VANCOMYCIN 1G PREMIX 200 ML IV NR (17:00)
[2022-01-21] MEDS: BLOOD SUGAR DIAGNOSTIC STRIP TEST SCH ×2 (17:00→21:00)
[2022-01-21] MEDS ORDERED: NOREPINEPHRINE 8 MG in DEXT 5% WATER 242 ML IV STA (17:39)
[2022-01-21] MEDS: SODIUM CHLORIDE 0.9% 1,000 ML IV SCH ×2 (17:49→23:30)
[2022-01-21] MEDS ORDERED: NOREPINEPHRINE 8MG/250ML PMX 242 ML IV NR (18:00)
[2022-01-21] MEDS ORDERED: NOREPINEPHRINE 8MG/250ML PMX 250 ML IV NR (18:15)
[2022-01-21] MEDS: INSULIN LISPRO 100 UNITS/ML SUBCUT SCH ×2 (18:20→21:00)
[2022-01-21] MEDS: HYDROMORPHONE HCL/PF 2MG/ML CPJ IV PRN (18:42)
[2022-01-21] MEDS ORDERED: AZITHROMYCIN 500 MG TABLET PO NR (19:00)
[2022-01-22] VITALS (87 sets, daily range): BP systolic 57–170; BP diastolic 35–111
[2022-01-22] MEDS ORDERED: NOREPINEPHRINE 8 MG in DEXT 5% WATER 242 ML IV PRN (04:00)
[2022-01-22] MEDS: PIPERACILLIN/TAZOBACTAM 3.375 G in DEXTROSE 5% WATER 50 ML IV SCH ×3 (05:34→22:15)
[2022-01-22 05:59] LABS: HEMATOCRIT. 22.8 % (42.0-52.0); HEMOGLOBIN. 7.5 g/dL (14.0-18.0); MEAN CORPUSCULAR HEMOGLOBIN 30.5 pg (28.0-32.0); MEAN CORPUSCULAR VOLUME 92.3 fL (80.0-94.0); MEAN PLATELET VOLUME 9.3 fl (7.4-10.4); PLATELET 171 x1000/uL (130-400); RED BLOOD CELL COUNT 2.47 mill/uL (4.7-6.1); RED CELL DISTRIBUTION WIDTH 16.1 % (11.6-14.6)
[2022-01-22] MEDS: INSULIN LISPRO 100 UNITS/ML SUBCUT SCH ×4 (08:20→21:00)
[2022-01-22] MEDS: SODIUM CHLORIDE 0.9% 1,000 ML IV SCH ×2 (08:30→15:43)
[2022-01-22] MEDS: BLOOD SUGAR DIAGNOSTIC STRIP TEST SCH ×4 (08:36→21:27)
[2022-01-22] MEDS: VANCOMYCIN 1G PREMIX 200 ML IV SCH (10:04)
[2022-01-22] MEDS ORDERED: VANCOMYCIN 750 MG in DEXT 5% WATER 250 ML IV SCH (11:00)
[2022-01-22] MEDS: AZITHROMYCIN 250 MG TABLET PO SCH (11:00)
[2022-01-22] MEDS ORDERED: NALOXONE HCL 0.4MG/ML VIAL IV PRN (13:00)
[2022-01-22] MEDS: HYDROMORPHONE HCL/PF 2MG/ML CPJ IV PRN ×2 (13:42→22:16)
[2022-01-22] MEDS: PANTOPRAZOLE SODIUM 40 MG/VIAL IV SCH (13:50)
[2022-01-22 14:43] LABS: TOTAL IRON BINDING CAPACITY 115 ug/dL (250-450)
[2022-01-22 15:13] LABS: VITAMIN B12 SERUM 1076 pg/mL (211-911)
[2022-01-22 15:30] LABS: FOLIC ACID (FOLATE) SERUM > 20.00 ng/mL (>5.38)
[2022-01-22 15:42] LABS: FERRITIN 1563 ng/mL (22-322)
[2022-01-22 15:59] LABS: PLATELET ESTIMATE NORMAL
[2022-01-22] MEDS: MIDODRINE HCL 5MG TABLET PO SCH (17:00)
[2022-01-22] MEDS: DEXT 10% WATER 1,000 ML IV SCH (17:15)
[2022-01-22] MEDS: ENOXAPARIN 40MG/0.4ML SYR SUBCUT SCH (17:16)
[2022-01-22 18:26] LABS: HEPATITIS B SURFACE ANTIGEN NEGATIVE
[2022-01-23] VITALS (32 sets, daily range): BP systolic 104–152; BP diastolic 56–112
[2022-01-23] MEDS: DEXT 10% WATER 1,000 ML IV SCH ×2 (03:24→15:06)
[2022-01-23] MEDS: VANCOMYCIN 1G PREMIX 200 ML IV SCH ×2 (03:24→23:50)
[2022-01-23] MEDS: HYDROMORPHONE HCL/PF 2MG/ML CPJ IV PRN ×4 (03:32→22:04)
[2022-01-23] MEDS: PIPERACILLIN/TAZOBACTAM 3.375 G in DEXTROSE 5% WATER 50 ML IV SCH ×3 (05:49→22:03)
[2022-01-23 06:11] LABS: PHOSPHORUS 2.6 mg/dL (2.5-4.9)
[2022-01-23 06:34] LABS: BASOPHILS % 0.6 % (0.0-2.0); EOSINOPHILS % 6.9 % (0.0-5.0); HEMATOCRIT. 22.1 % (42.0-52.0); HEMOGLOBIN. 7.2 g/dL (14.0-18.0); LYMPHOCYTES % 12.1 % (20.0-50.0); MEAN CORPUSCULAR HEMOGLOBIN 30.8 pg (28.0-32.0); MEAN PLATELET VOLUME 8.4 fl (7.4-10.4); MONOCYTES % 9.8 % (2.0-8.0); NEUTROPHILS % 70.6 % (40.0-76.0); PLATELET 169 x1000/uL (130-400); RED BLOOD CELL COUNT 2.35 mill/uL (4.7-6.1); RED CELL DISTRIBUTION WIDTH 16.7 % (11.6-14.6)
[2022-01-23] MEDS: INSULIN LISPRO 100 UNITS/ML SUBCUT SCH ×4 (08:20→21:00)
[2022-01-23] MEDS: PANTOPRAZOLE SODIUM 40 MG/VIAL IV SCH (08:26)
[2022-01-23] MEDS: BLOOD SUGAR DIAGNOSTIC STRIP TEST SCH ×3 (08:26→21:29)
[2022-01-23] MEDS: MIDODRINE HCL 5MG TABLET PO SCH ×3 (08:26→17:00)
[2022-01-23] MEDS: AZITHROMYCIN 250 MG TABLET PO SCH (08:26)
[2022-01-23] MEDS ORDERED: POTASSIUM CHLORIDE INJ 40 MEQ in DEXT 5% WATER 250 ML IV ONE (09:45)
[2022-01-23] MEDS: KCL 20MEQ/100ML X 2 FOR TOTAL KCL 40MEQ/200ML IV SCH ×4 (11:24→17:08)
[2022-01-23] MEDS: ENOXAPARIN 40MG/0.4ML SYR SUBCUT SCH (17:08)
[2022-01-23] MEDS: LEVETIRACETAM 500MG/5ML CUP PO SCH (21:53)
[2022-01-23] MEDS: TOTAL PARENTERAL NUTRITION IV SCH (22:04)
[2022-01-23] MEDS ORDERED: NON FORMULARY PATIENT HOME MED XX SCH (22:15)
[2022-01-24] VITALS (12 sets, daily range): BP systolic 122–163; BP diastolic 64–104
[2022-01-24] MEDS: PIPERACILLIN/TAZOBACTAM 3.375 G in DEXTROSE 5% WATER 50 ML IV SCH (05:26)
[2022-01-24] MEDS: HYDROMORPHONE HCL/PF 2MG/ML CPJ IV PRN ×3 (06:31→22:13)
[2022-01-24 06:55] LABS: BASOPHILS % 0.8 % (0.0-2.0); EOSINOPHILS % 8.3 % (0.0-5.0); HEMATOCRIT. 26.3 % (42.0-52.0); HEMOGLOBIN. 8.6 g/dL (14.0-18.0); LYMPHOCYTES % 17.5 % (20.0-50.0); MEAN CORPUSCULAR VOLUME 92.2 fL (80.0-94.0); MEAN PLATELET VOLUME 8.8 fl (7.4-10.4); MONOCYTES % 11.9 % (2.0-8.0); NEUTROPHILS % 61.5 % (40.0-76.0); PLATELET 194 x1000/uL (130-400); RED BLOOD CELL COUNT 2.85 mill/uL (4.7-6.1); RED CELL DISTRIBUTION WIDTH 16.7 % (11.6-14.6)
[2022-01-24] MEDS: BLOOD SUGAR DIAGNOSTIC STRIP TEST SCH ×4 (07:30→21:00)
[2022-01-24] MEDS: INSULIN LISPRO 100 UNITS/ML SUBCUT SCH ×3 (08:00→17:57)
[2022-01-24] MEDS ORDERED: LACOSAMIDE 200 MG TABLET (VIMPAT) PO SCH ×2 (09:00)
[2022-01-24] MEDS: MIDODRINE HCL 5MG TABLET PO SCH ×3 (09:00→17:00)
[2022-01-24] MEDS: LEVETIRACETAM 500MG/5ML CUP PO SCH ×2 (09:37→22:14)
[2022-01-24] MEDS: SUCRALFATE 1 G/10 ML UDC PO SCH ×4 (09:37→22:14)
[2022-01-24] MEDS: AZITHROMYCIN 250 MG TABLET PO SCH (09:42)
[2022-01-24] MEDS: PANTOPRAZOLE SODIUM 40 MG/VIAL IV SCH (09:44)
[2022-01-24] MEDS ORDERED: LACOSAMIDE 100 MG TABLET PO SCH (10:13)
[2022-01-24] MEDS: LACOSAMIDE 100 MG TABLET PO SCH ×2 (10:56→22:14)
[2022-01-24] MEDS ORDERED: SODIUM CHLORIDE 0.45% 1,000 ML IV SCH (14:00)
[2022-01-24 15:49] LABS: BASOPHILS % 0.8 % (0.0-2.0); EOSINOPHILS % 6.4 % (0.0-5.0); HEMOGLOBIN. 9.5 g/dL (14.0-18.0); LYMPHOCYTES % 19.5 % (20.0-50.0); MEAN CORPUSCULAR HEMOGLOBIN 30.4 pg (28.0-32.0); MEAN CORPUSCULAR VOLUME 93.3 fL (80.0-94.0); MEAN PLATELET VOLUME 8.7 fl (7.4-10.4); MONOCYTES % 9.5 % (2.0-8.0); NEUTROPHILS % 63.8 % (40.0-76.0); PLATELET 212 x1000/uL (130-400); RED BLOOD CELL COUNT 3.11 mill/uL (4.7-6.1); RED CELL DISTRIBUTION WIDTH 16.7 % (11.6-14.6)
[2022-01-24 16:12] LABS: CHLORIDE 113 mEq/L (98-107)
[2022-01-24] MEDS: MEROPENEM 1000MG in NORMAL SALINE 100ML IV SCH (16:30)
[2022-01-24] MEDS: ENOXAPARIN 40MG/0.4ML SYR SUBCUT SCH (17:47)
[2022-01-24] MEDS: FAT EMULSIONS 500 ML IV SCH (21:56)
[2022-01-24] MEDS: TOTAL PARENTERAL NUTRITION IV SCH (21:57)
[2022-01-25] VITALS (10 sets, daily range): BP systolic 129–146; BP diastolic 61–86
[2022-01-25] MEDS: MEROPENEM 1000MG in NORMAL SALINE 100ML IV SCH ×2 (06:47→18:38)
[2022-01-25 07:06] LABS: BASOPHILS % 0.7 % (0.0-2.0); EOSINOPHILS % 9.8 % (0.0-5.0); HEMATOCRIT. 29.2 % (42.0-52.0); HEMOGLOBIN. 9.8 g/dL (14.0-18.0); LYMPHOCYTES % 23.6 % (20.0-50.0); MEAN CORPUSCULAR HEMOGLOBIN 30.8 pg (28.0-32.0); MEAN CORPUSCULAR VOLUME 91.4 fL (80.0-94.0); MEAN PLATELET VOLUME 9.1 fl (7.4-10.4); MONOCYTES % 9.6 % (2.0-8.0); NEUTROPHILS % 56.3 % (40.0-76.0); PLATELET 204 x1000/uL (130-400); RED BLOOD CELL COUNT 3.19 mill/uL (4.7-6.1); RED CELL DISTRIBUTION WIDTH 16.3 % (11.6-14.6)
[2022-01-25] MEDS: BLOOD SUGAR DIAGNOSTIC STRIP TEST SCH ×4 (07:30→20:56)
[2022-01-25] MEDS: INSULIN LISPRO 100 UNITS/ML SUBCUT SCH ×4 (08:00→20:56)
[2022-01-25] MEDS: HYDROMORPHONE HCL/PF 2MG/ML CPJ IV PRN ×4 (08:34→23:03)
[2022-01-25] MEDS: LEVETIRACETAM 500MG/5ML CUP PO SCH ×2 (08:36→21:09)
[2022-01-25] MEDS: SUCRALFATE 1 G/10 ML UDC PO SCH ×4 (08:36→21:09)
[2022-01-25] MEDS: PANTOPRAZOLE SODIUM 40 MG/VIAL IV SCH (08:36)
[2022-01-25] MEDS: AZITHROMYCIN 250 MG TABLET PO SCH (09:00)
[2022-01-25] MEDS: LACOSAMIDE 100 MG TABLET PO SCH ×2 (10:56→21:10)
[2022-01-25] MEDS: MIDODRINE HCL 5MG TABLET PO SCH ×3 (11:00→16:24)
[2022-01-25] MEDS ORDERED: LEVETIRACETAM 500MG TABLET PO SCH (11:30)
[2022-01-25] MEDS: KCL 20MEQ/100ML PREMIX 100 ML IV SCH ×2 (13:22→16:32)
[2022-01-25] MEDS: ENOXAPARIN 40MG/0.4ML SYR SUBCUT SCH (16:32)
[2022-01-25] MEDS: TOTAL PARENTERAL NUTRITION 2,500 ML IV SCH (21:10)
[2022-01-26] VITALS: BP 139/80
[2022-01-26 04:00] VITALS: BP 135/78
[2022-01-26] MEDS: BLOOD SUGAR DIAGNOSTIC STRIP TEST SCH ×4 (07:05→20:35)
[2022-01-26] MEDS: INSULIN LISPRO 100 UNITS/ML SUBCUT SCH ×4 (07:05→20:35)
[2022-01-26] MEDS: SUCRALFATE 1 G/10 ML UDC PO SCH ×4 (07:05→21:38)
[2022-01-26] MEDS: HYDROMORPHONE HCL/PF 2MG/ML CPJ IV PRN ×4 (07:05→22:35)
[2022-01-26] MEDS: MEROPENEM 1000MG in NORMAL SALINE 100ML IV SCH ×2 (07:05→16:19)
[2022-01-26 07:27] LABS: BASOPHILS % 0.8 % (0.0-2.0); HEMATOCRIT. 28.8 % (42.0-52.0); HEMOGLOBIN. 9.6 g/dL (14.0-18.0); MEAN CORPUSCULAR HEMOGLOBIN 30.3 pg (28.0-32.0); MEAN CORPUSCULAR VOLUME 90.5 fL (80.0-94.0); MEAN PLATELET VOLUME 9.1 fl (7.4-10.4); MONOCYTES % 9.4 % (2.0-8.0); NEUTROPHILS % 56.8 % (40.0-76.0); PLATELET 194 x1000/uL (130-400); RED BLOOD CELL COUNT 3.18 mill/uL (4.7-6.1)
[2022-01-26 08:00] VITALS: BP 143/82
[2022-01-26] MEDS: MIDODRINE HCL 5MG TABLET PO SCH ×3 (08:32→16:12)
[2022-01-26] MEDS ORDERED: VANCOMYCIN 500MG PREMIX 100 ML IV SCH (09:00)
[2022-01-26] MEDS: LACOSAMIDE 100 MG TABLET PO SCH ×2 (09:30→21:39)
[2022-01-26] MEDS: PANTOPRAZOLE SODIUM 40 MG/VIAL IV SCH (09:30)
[2022-01-26] MEDS: LEVETIRACETAM 500MG/5ML CUP PO SCH ×2 (09:30→21:38)
[2022-01-26] MEDS ORDERED: VANCOMYCIN 1GM PMX (XELLIA) 200 ML IV SCH (11:00)
[2022-01-26] MEDS ORDERED: VANCOMYCIN 1G PREMIX 200 ML IV SCH (11:00)
[2022-01-26 12:00] VITALS: BP 145/91
[2022-01-26] MEDS ORDERED: VANCOMYCIN 750 MG in DEXT 5% WATER 250 ML IV SCH (13:00)
[2022-01-26 16:00] VITALS: BP 120/76
[2022-01-26] MEDS: ENOXAPARIN 40MG/0.4ML SYR SUBCUT SCH (16:19)
[2022-01-26 20:00] VITALS: BP 145/86
[2022-01-26] MEDS: TOTAL PARENTERAL NUTRITION 2,500 ML IV SCH (21:38)
[2022-01-26] MEDS: ACETAMINOPHEN 325MG TABLET PO PRN (21:39)
[2022-01-27] VITALS: BP 139/74
[2022-01-27 04:00] VITALS: BP 142/80
[2022-01-27] MEDS: BLOOD SUGAR DIAGNOSTIC STRIP TEST SCH ×4 (05:36→21:11)
[2022-01-27] MEDS: MEROPENEM 1000MG in NORMAL SALINE 100ML IV SCH ×2 (05:36→14:23)
[2022-01-27] MEDS: SUCRALFATE 1 G/10 ML UDC PO SCH ×4 (05:36→21:21)
[2022-01-27] MEDS: HYDROMORPHONE HCL/PF 2MG/ML CPJ IV PRN ×5 (05:36→22:30)
[2022-01-27] MEDS: INSULIN LISPRO 100 UNITS/ML SUBCUT SCH ×4 (05:58→21:00)
[2022-01-27 06:17] LABS: BASOPHILS % 0.5 % (0.0-2.0); EOSINOPHILS % 9.6 % (0.0-5.0); HEMATOCRIT. 29.7 % (42.0-52.0); HEMOGLOBIN. 10.1 g/dL (14.0-18.0); LYMPHOCYTES % 13.8 % (20.0-50.0); MEAN CORPUSCULAR HEMOGLOBIN 30.8 pg (28.0-32.0); MEAN CORPUSCULAR VOLUME 90.3 fL (80.0-94.0); MEAN PLATELET VOLUME 9.1 fl (7.4-10.4); NEUTROPHILS % 70.1 % (40.0-76.0); PLATELET 244 x1000/uL (130-400); RED BLOOD CELL COUNT 3.29 mill/uL (4.7-6.1); RED CELL DISTRIBUTION WIDTH 15.8 % (11.6-14.6)
[2022-01-27 08:00] VITALS: BP 130/74
[2022-01-27] MEDS: MIDODRINE HCL 5MG TABLET PO SCH ×4 (08:33→15:30)
[2022-01-27] MEDS: PANTOPRAZOLE SODIUM 40 MG/VIAL IV SCH (08:35)
[2022-01-27] MEDS: LEVETIRACETAM 500MG/5ML CUP PO SCH (09:36)
[2022-01-27] MEDS: LACOSAMIDE 100 MG TABLET PO SCH ×2 (09:37→21:48)
[2022-01-27 12:00] VITALS: BP 101/57
[2022-01-27 15:34] VITALS: BP 118/73
[2022-01-27] MEDS: ENOXAPARIN 40MG/0.4ML SYR SUBCUT SCH (16:06)
[2022-01-27 20:00] VITALS: BP 128/80
[2022-01-27] MEDS: ACETAMINOPHEN 325MG TABLET PO PRN (20:32)
[2022-01-27] MEDS ORDERED: VANCOMYCIN 1G PREMIX 200 ML IV SCH (21:00)
[2022-01-27] MEDS ORDERED: LEVE10006 IV (21:03)
[2022-01-27] MEDS ORDERED: PANT40TA51 PO (21:03)
[2022-01-27] MEDS ORDERED: [UNRECOGNIZED DRUG - CODE] IV (21:03)
[2022-01-27] MEDS ORDERED: SUCR1TAB PO (21:03)
[2022-01-27] MEDS ORDERED: FAMO-287 IV (21:03)
[2022-01-27] MEDS ORDERED: INSU100I28 SQ (21:03)
[2022-01-27] MEDS ORDERED: LACO200T2 PO (21:03)
[2022-01-27] MEDS ORDERED: NALO0.4S IJ (21:03)
[2022-01-27] MEDS ORDERED: METH-819 MT (21:03)
[2022-01-27] MEDS ORDERED: FENT1PAT4 TP (21:03)
[2022-01-27] MEDS ORDERED: ONDA4TAB50 PO (21:03)
[2022-01-27] MEDS: LEVETIRACETAM 500MG PREMIX 100 ML IV SCH (21:22)
[2022-01-28] VITALS: BP 100/60
[2022-01-28] MEDS: HYDROMORPHONE HCL/PF 2MG/ML CPJ IV PRN ×6 (00:14→21:11)
[2022-01-28] MEDS: MEROPENEM 1000MG in NORMAL SALINE 100ML IV SCH ×4 (00:53→22:06)
[2022-01-28] MEDS: LACTATED RINGERS 1,000 ML IV SCH ×2 (01:50→15:25)
[2022-01-28] MEDS: TOTAL PARENTERAL NUTRITION 2,500 ML IV SCH (01:50)
[2022-01-28] MEDS: FAT EMULSIONS 500 ML IV SCH (01:50)
[2022-01-28 04:00] VITALS: BP 105/71
[2022-01-28] MEDS: ACETAMINOPHEN 325MG TABLET PO PRN (04:52)
[2022-01-28] MEDS: BLOOD SUGAR DIAGNOSTIC STRIP TEST SCH ×4 (05:39→20:36)
[2022-01-28] MEDS: INSULIN LISPRO 100 UNITS/ML SUBCUT SCH ×4 (07:40→21:00)
[2022-01-28 08:00] VITALS: BP 124/69
[2022-01-28] MEDS: PANTOPRAZOLE SODIUM 40 MG/VIAL IV SCH (08:55)
[2022-01-28] MEDS: MIDODRINE HCL 5MG TABLET PO SCH ×3 (08:56→17:00)
[2022-01-28] MEDS: LACOSAMIDE 100 MG TABLET PO SCH ×2 (08:56→20:35)
[2022-01-28] MEDS: SUCRALFATE 1 G/10 ML UDC PO SCH ×4 (08:56→20:34)
[2022-01-28] MEDS: LEVETIRACETAM 500MG PREMIX 100 ML IV SCH ×2 (08:57→20:34)
[2022-01-28] MEDS: DOCUSATE SODIUM 100MG CAPSULE PO SCH ×2 (12:00→18:11)
[2022-01-28] MEDS: LACTULOSE 20G/30ML UDC PO NR ×2 (12:33→18:11)
[2022-01-28 16:00] VITALS: BP 119/92
[2022-01-28] MEDS: ENOXAPARIN 40MG/0.4ML SYR SUBCUT SCH (18:11)
[2022-01-28] MEDS ORDERED: NALOXONE HCL 0.4MG/ML VIAL IV PRN (19:00)
[2022-01-28 20:00] VITALS: BP 109/75
[2022-01-29] VITALS: BP 112/68
[2022-01-29] MEDS: HYDROMORPHONE HCL/PF 2MG/ML CPJ IV PRN ×6 (00:14→21:17)
[2022-01-29] MEDS: TOTAL PARENTERAL NUTRITION 2,500 ML IV SCH (03:25)
[2022-01-29] MEDS: MEROPENEM 1000MG in NORMAL SALINE 100ML IV SCH ×3 (05:18→21:09)
[2022-01-29] MEDS: SUCRALFATE 1 G/10 ML UDC PO SCH ×5 (06:41→21:15)
[2022-01-29] MEDS: BLOOD SUGAR DIAGNOSTIC STRIP TEST SCH ×5 (06:41→21:09)
[2022-01-29] MEDS: INSULIN LISPRO 100 UNITS/ML SUBCUT SCH ×4 (06:46→21:00)
[2022-01-29 08:00] VITALS: BP 108/76
[2022-01-29] MEDS: LACTATED RINGERS 1,000 ML IV SCH ×2 (08:48→23:33)
[2022-01-29] MEDS: DOCUSATE SODIUM 100MG CAPSULE PO SCH ×2 (09:00→16:50)
[2022-01-29] MEDS: PANTOPRAZOLE SODIUM 40 MG/VIAL IV SCH (10:05)
[2022-01-29] MEDS: MIDODRINE HCL 5MG TABLET PO SCH ×3 (10:05→16:50)
[2022-01-29] MEDS: LEVETIRACETAM 500MG PREMIX 100 ML IV SCH ×2 (10:06→21:09)
[2022-01-29] MEDS: ACETAMINOPHEN 325MG TABLET PO PRN (10:37)
[2022-01-29 11:21] LABS: HEMATOCRIT. 28.8 % (42.0-52.0); HEMOGLOBIN. 9.6 g/dL (14.0-18.0); MEAN CORPUSCULAR HEMOGLOBIN 30.2 pg (28.0-32.0); MEAN CORPUSCULAR VOLUME 90.2 fL (80.0-94.0); MEAN PLATELET VOLUME 9.5 fl (7.4-10.4); PLATELET 241 x1000/uL (130-400); RED BLOOD CELL COUNT 3.19 mill/uL (4.7-6.1); RED CELL DISTRIBUTION WIDTH 15.6 % (11.6-14.6)
[2022-01-29 12:00] VITALS: BP 116/72
[2022-01-29 13:20] LABS: PLATELET ESTIMATE NORMAL
[2022-01-29] MEDS: LACOSAMIDE 100 MG TABLET PO SCH ×2 (13:21→21:15)
[2022-01-29] MEDS ORDERED: METHYLPREDNISOLONE SOD SUCC 125 MG/2 ML VIAL IV SCH (13:30)
[2022-01-29] MEDS: IPRATROPIUM/ALBUTEROL 0.5-3(2.5)MG/3ML NEB HHN SCH ×2 (15:24→20:04)
[2022-01-29 16:00] VITALS: BP 110/64
[2022-01-29] MEDS: ENOXAPARIN 40MG/0.4ML SYR SUBCUT SCH (16:50)
[2022-01-29 20:00] VITALS: BP 130/77
[2022-01-29] MEDS: BUDESONIDE 0.5MG/2ML NEB HHN SCH (20:04)
[2022-01-29] MEDS ORDERED: TOTAL PARENTERAL NUTRITION 1,000 ML IV SCH (21:00)
[2022-01-29] MEDS: FAT EMULSIONS 500 ML IV SCH (21:16)
[2022-01-29] MEDS: TOTAL PARENTERAL NUTRITION IV SCH (21:17)
[2022-01-30] VITALS: BP 124/74
[2022-01-30] MEDS: HYDROMORPHONE HCL/PF 2MG/ML CPJ IV PRN ×6 (00:33→23:07)
[2022-01-30] MEDS: IPRATROPIUM/ALBUTEROL 0.5-3(2.5)MG/3ML NEB HHN SCH ×3 (01:12→07:53)
[2022-01-30] MEDS: MEROPENEM 1000MG in NORMAL SALINE 100ML IV SCH ×3 (05:20→22:58)
[2022-01-30] MEDS: INSULIN LISPRO 100 UNITS/ML SUBCUT SCH ×4 (06:49→21:00)
[2022-01-30] MEDS: BLOOD SUGAR DIAGNOSTIC STRIP TEST SCH ×4 (06:49→21:12)
[2022-01-30] MEDS: SUCRALFATE 1 G/10 ML UDC PO SCH ×4 (06:50→21:51)
[2022-01-30 07:16] LABS: BASOPHILS % 0.8 % (0.0-2.0); EOSINOPHILS % 0.1 % (0.0-5.0); HEMOGLOBIN. 10.1 g/dL (14.0-18.0); LYMPHOCYTES % 11.2 % (20.0-50.0); MEAN CORPUSCULAR HEMOGLOBIN 30.6 pg (28.0-32.0); MEAN CORPUSCULAR VOLUME 90.8 fL (80.0-94.0); MEAN PLATELET VOLUME 9.2 fl (7.4-10.4); MONOCYTES % 11.4 % (2.0-8.0); NEUTROPHILS % 76.5 % (40.0-76.0); PLATELET 247 x1000/uL (130-400); RED CELL DISTRIBUTION WIDTH 15.8 % (11.6-14.6)
[2022-01-30] MEDS: BUDESONIDE 0.5MG/2ML NEB HHN SCH (07:52)
[2022-01-30 08:00] VITALS: BP 129/70
[2022-01-30] MEDS: MIDODRINE HCL 5MG TABLET PO SCH ×3 (09:00→17:21)
[2022-01-30] MEDS: PANTOPRAZOLE SODIUM 40 MG/VIAL IV SCH (09:04)
[2022-01-30] MEDS: LACOSAMIDE 100 MG TABLET PO SCH ×2 (09:05→21:51)
[2022-01-30] MEDS: DOCUSATE SODIUM 100MG CAPSULE PO SCH ×2 (09:06→17:21)
[2022-01-30] MEDS: LEVETIRACETAM 500MG PREMIX 100 ML IV SCH ×2 (09:17→22:58)
[2022-01-30 11:30] VITALS: BP 108/67
[2022-01-30 16:30] VITALS: BP 119/77
[2022-01-30] MEDS: ENOXAPARIN 40MG/0.4ML SYR SUBCUT SCH (17:21)
[2022-01-30] MEDS: LACTATED RINGERS 1,000 ML IV SCH (17:22)
[2022-01-30 20:00] VITALS: BP 126/82
[2022-01-30] MEDS: TOTAL PARENTERAL NUTRITION IV SCH (21:53)
[2022-01-31] VITALS: BP 121/67
[2022-01-31 01:52] VITALS: BP 121/67
[2022-01-31 02:09] VITALS: BP 121/67
[2022-01-31] MEDS: HYDROMORPHONE HCL/PF 2MG/ML CPJ IV PRN (02:09)
== END 2022-01-31 03:26 | disposition short-term general hospital (02) | DRG 871 ==
LOC: ER 12:01 → CVICU 17:44 → EDBEDREQTM 17:47 → EDBEDREQ 17:47 → EDBEDREQSVC 17:47 → ENRESERV 19:23 → 5EST 01-23 12:31 → 8WST 01-25 15:28 → 7EST 01-30 11:28
PROVIDERS: ADMIT Internal Medicine; ATTEND Internal Medicine
PROC: 30233N1 Transfusion of Nonautologous Red Blood Cells into Peripheral Vein, Percutaneous Approach (ICD-10-PCS; principal; 2022-01-23)
DX: A41.59 Other Gram-negative sepsis (principal); J12.82 Pneumonia due to coronavirus disease 2019; R65.21 Severe sepsis with septic shock; U07.1 COVID-19; N39.0 Urinary tract infection, site not specified; G82.20 Paraplegia, unspecified; K31.6 Fistula of stomach and duodenum; J98.11 Atelectasis; E11.22 Type 2 diabetes mellitus with diabetic chronic kidney disease; E86.9 Volume depletion, unspecified; E87.6 Hypokalemia; G89.29 Other chronic pain; F17.200 Nicotine dependence, unspecified, uncomplicated; N18.9 Chronic kidney disease, unspecified; K56.41 Fecal impaction; Z20.822 Contact with and (suspected) exposure to COVID-19; G40.909 Epilepsy, unspecified, not intractable, without status epilepticus; D64.9 Anemia, unspecified; K76.0 Fatty (change of) liver, not elsewhere classified; R16.0 Hepatomegaly, not elsewhere classified; I12.9 Hypertensive chronic kidney disease with stage 1 through stage 4 chronic kidney disease, or unspecified chronic kidney disease; Z79.899 Other long term (current) drug therapy; Z99.3 Dependence on wheelchair; Z74.01 Bed confinement status; I69.398 Other sequelae of cerebral infarction
CPT/HCPCS: 36415; 71045; 74176; 76700; 80048; 80053; 80076; 80202; 80339; 81003; 82248; 82465; 82607; 82728; 82746; 82962; 83540; 83550; 83605; 83735; 84100; 84134; 84145; 84478; 85025; 85044; 86705; 86709; 86803; 86850; 86900; 86920; 87070; 87077; 87186; 87340; 87426; 93005; 93306; 94640; 99291; C1893; C9113; C9803; J1170; J1650; J1953; J2185; J2270; J2405; J2543; J2930; J3370; J3480; J3490; J7030; J7060; J7120; J7626; P9016